=== PATIENT | female | born 1960 | race Caucasian/White ===

== ENCOUNTER → 2020-04-28 09:00 | Outpatient (CLI) | payer MEDICARE, SELFPAY | PROVIDERS: PCP Family Medicine | DX: R50.9 Fever, unspecified (principal) | CPT/HCPCS: 87635; 94799; C9803; U0003 ==

== ENCOUNTER 2020-05-22 11:40 | Emergency (ER) | payer MEDICARE, SELFPAY ==
[2020-05-22 11:41] VITALS: BP 131/75; PULSE 111; RESP 19; TEMP 36.2; O2SAT 99; BMI 37.5
--- NOTE | 2020-05-22 11:43 | NURSING ---
NO OLD EKGS
--- NOTE | 2020-05-22 12:03 | EKG12_ITS ---
Test Reason : CP Blood Pressure : / mmHG Vent. Rate : 105 BPM Atrial Rate : 105 BPM P-R Int : 158 ms QRS Dur : 108 ms QT Int : 356 ms P-R-T Axes : 025 -06 030 degrees QTc Int : 470 ms Sinus tachycardia Poor R wave progression Confirmed by FAROOQ RODNEY, ARIS ([id number]), editor greeting card ALONDRA MURPHY ([id number]) on 05/23/2020 1:08:52 PM Referred By: HITESH Confirmed By:ARIS TRIVEDI MD
--- NOTE | 2020-05-22 12:07 | ED.VISSUMM ---
- ER Visit Summary Date of Service: 05/22/20 Chief Complaint: Chest pain History of Present Illness: The patient is a 60 F who presents with chest pain that began last night. Patient states the pain is over the left upper chest. Patient describes as a heaviness. Patient states it is similar to prior episodes of pneumonia. Patient states her breathing is worse when she lays down. Patient admits to a fever of 101.6 at home. Patient admits to some shortness of breath and cough. Patient denies any sputum production. Patient also admits to history of reflux disease but states this is unchanged. Patient denies any nausea or vomiting. Patient denies any palpitations. Patient states her 's coworker was recently diagnosed with COVID. Patient states her has been tested for COVID but they do not have the results yet. Physical Examination: Vital signs are stable except for mild tachycardia of 111. Patient is afebrile. Patient is in no acute distress. Oral mucosa is pink and moist. Neck is supple. Trachea is midline. There is no JVD noted. Heart was regular rate and rhythm. Lungs are clear and equal bilaterally. Abdomen is soft. Bowel sounds are normal. There is no tenderness. There is no rebound or guarding noted. Skin is warm dry. Cranial nerves II through XII are intact. There are no focal motor or sensory deficits noted. Extremities are intact. There is no calf tenderness or edema. Test Results: EKG showed sinus tachycardia with a rate of 105. There are no acute ST or T wave changes. Chest x-ray was obtained. There is no acute cardiopulmonary process. CBC, basic metabolic profile, troponin, and d-dimer were obtained and were within normal limits. Emergency Department Course and Treatment: Patient was given aspirin and sublingual nitroglycerin here. Patient states her pain improved. Patient has a HEART score of 3. Patient was advised that this is low risk for acute cardiac event. Patient was instructed to take Tylenol or ibuprofen as needed for pain. A COVID swab was obtained and will be sent out. Patient was instructed to follow-up with her primary care physician in 5 to 7 days. Patient understood and was agreeable with the plan. All questions were answered. Disposition: Discharge home Impression: 1. Chest pain This note was generated with [employer] dictation software. It may contain incorrect words, spelling, and punctuation that were not noted in review of the chart prior to signing ED Disposition - Plan for ED Patient: Disposition: Home or Assisted Living Diagnosis: Chest pain Instructions: ED Chest Pain Atypical Unkn Cause Referrals: Mervin Dorantes MD [Primary Care Provider] - 5-7 Days
[2020-05-22] MEDS: Aspirin 81 MG TAB.CHEW 324 MG PO (12:10)
[2020-05-22 12:12] VITALS: BP 118/103; PULSE 102
[2020-05-22] MEDS: Nitroglycerin SL (ED/IMG/CATH) 0.4 MG TABLET SUBLINGUAL (12:12)
[2020-05-22 12:28] VITALS: O2SAT 97
--- NOTE | 2020-05-22 12:30 | RAD_ITS ---
STUDY: X-RAY CHEST REASON FOR EXAM: Female, 60 years old. CHEST HEAVINESS, DRY COUGH AND LEFT SHOULDER BLADE DISCOMFORT ONSET LAST NIGHT. TECHNIQUE: Single AP portable view of the chest. COMPARISON: None. FINDINGS: EKG electrodes are seen. The lungs are clear and expanded. There is no demonstrated pleural abnormality. There is mild cardiac enlargement. Normal mediastinum and finesse. Normal visualized pulmonary arteries. There is atherosclerotic calcification of the aortic arch with tortuosity. Normal visualized thoracic spine. Normal visualized ribs, clavicles, and shoulders. There is no demonstrated abnormality of the visualized soft tissue structures of the upper abdomen. RAD/Chest 1 View (Portable) IMPRESSION: Mild cardiomegaly. The lungs are clear. Electronically Signed: Gabriel Hartley, at 12:47 EDT , Service support ,
[2020-05-22 12:44] LABS: Absolute Neutrophil Count 5.2 X10^3/uL (2.0-7.7); Basophil# 0.02 X10^3/uL; Basophil% 0.3 % (0-1); Eosinophils% 1.5 % (0-5); Hematocrit 40.3 % (37-47); Lymphocyte % 10.2 % (19-41); Mean Corp Hgb Conc 32.3 g/dL (32-36); Mean Corpuscular Hgb 26.4 pg (27.0-32.0); Mean Corpuscular Volume 81.7 fL (81-99); Mean Platelet Vol. 9.6 fl (6.2-12.0); Monocyte# 0.82 X10^3/uL; NRBC Flagged by Analyzer 0 % (0-5); Neutrophil # 5.19 X10^3/uL (2.7-7.7); Neutrophil % 75.7 % (47-70); Platelet Count 255 K/mm3 (150-450); RBC Distribution Width CV 14.7 % (11.6-14.6); RBC Distribution Width SD 43.8 fl (35.1-43.9); Red Blood Count 4.93 M/mm3 (4.2-5.4); White Blood Count 6.9 K/mm3 (4.4-11.0)
[2020-05-22 12:50] VITALS: BP 129/73; PULSE 101; RESP 13; TEMP 36.6; O2SAT 93
[2020-05-22 12:52] LABS: D-Dimer Quantitative (DVT/PE) 0.29 FEU/ug/m (0.27-0.49)
[2020-05-22 12:59] LABS: Anion Gap 5 (5-15); BUN 11 mg/dL (7-18); BUN/Creat Ratio 17.6 RATIO (10-20); Chloride 106 mmol/L (98-107); Creatinine, Serum 0.62 mg/dL (0.55-1.02); EST Glomerular Filtration Rate 103 mL/min (>60); Est Glom Filt Rate - Afr Amer 124 mL/min (>60); Estimated Creatinine Clearance 74.41 ml/min; Glucose 104 mg/dL (74-106); Potassium 3.5 mmol/L (3.5-5.1); Sodium Level 139 mmol/L (136-145)
[2020-05-22 13:00] VITALS: BP 124/74; PULSE 99; RESP 12; TEMP 36.6; O2SAT 92
== END 2020-05-22 14:33 | disposition home or self-care (01) ==
PROVIDERS: Emergency Provider Emergency Medicine; PCP Family Medicine
DX: R07.89 Other chest pain (principal); R06.00 Dyspnea, unspecified; R05 Cough; M54.2 Cervicalgia; M54.9 Dorsalgia, unspecified; R51 Headache; R50.9 Fever, unspecified; I10 Essential (primary) hypertension; K21.9 Gastro-esophageal reflux disease without esophagitis; F32.9 Major depressive disorder, single episode, unspecified; F41.9 Anxiety disorder, unspecified; Z87.01 Personal history of pneumonia (recurrent); Z79.899 Other long term (current) drug therapy; Z87.891 Personal history of nicotine dependence
CPT/HCPCS: 71045; 80048; 84484; 85025; 85379; 87635; 93005; 99285; A4216; U0003